=== PATIENT | male | born 1985 | race Caucasian/White ===

== ENCOUNTER 2019-03-07 17:41 | Inpatient (IN) | payer BC ==
[2019-03-07 23:09] VITALS: BMI 24.4
--- NOTE | 2019-03-08 00:07 | HP ---
COWS - Scale Resting Pulse: 0= TX 80 or Below Sweatin= Beads of Sweat on Face Restless Observation: 1= Difficult to Sit Still Pupil Size: 1= Pupils >than Normal (Pupils = 5 mm) Bone or Joint Aches: 1= Mild Discomfort Runny Nose/ Eye Tearin= Runny Nose/Eyes GI Upset > 30mins: 2= Nausea/Diarrhea Tremor Observation: 4= Gross Tremor/Twitching Yawning Observation: 1= 1-2x During Session Anxiety or Irritability: 2=Irritable/Anxious Goose Flesh Skin: 0=Smooth Skin COWS Score: 17 CIWA Score - Admission Criteria [facility] Guidelines: Admission for Medically Managed Detox: Requires at least one of the followin. CIWA greater than 12 2. Seizures within the past 24 hours 3. Delirium tremens within the past 24 hours 4. Hallucinations within the past 24 hours 5. Acute intervention needed for co occurring medical disorder 6. Acute intervention needed for co occurring psychiatric disorder 7. Severe withdrawal that cannot be handled at a lower level of care (continued vomiting, continued diarrhea, abnormal vital signs) requiring intravenous medication and/or fluids 8. Admission ROS [facility] Chief Complaint: Here for alcohol and heroin withdrawal. Allergies/Adverse Reactions: Allergies Allergy/AdvReac Type Severity Reaction Status Date / Time No Known Allergies Allergy Verified 03/07/19 20:05 History of Present Illness: Here for alcohol and heroin detox. I also need to stop the Xanax. Alcohol use began at age 10. Drinks 1 - 2 6pk 12 oz can daily Xanax - unknown quantity. Last used 3 days ago. Cocaine use since age 21. $56-60/daily IV. Heroin use began at age 15. Uses 15-20 bags. IVDU for 5 years. Shares needles and works. Is aware of health risks and is concerned may be HIV+ and have Hep C. States willing to take the HIV and Hep C test. Has a past MMT but not currently on a program. Nicotine use began at age 9. Hx blackouts. States 2 overdoses. States has a Narcan Kit at home. Hx: Asthma - last exacerbation 1 week ago - exercise induced. Cough x 3 weeks. Productive greenish phlegm. Streaks of dark blood in stool off and on. Burning w/ urination x 1 week. Chronic LBP MHHx: Insomnia; anti-social personality; Denies thoughts of harming self or others. Not seeing a MH Provider Patient Name: Sunil Linton Date: 1985 Address: [place] [address] Sex: Male Rx Written Rx Dispensed Drug Quantity Days Supply Prescriber Name 01/24/2019 02/04/2019 buprenorphine-naloxone 8-2 mg sl tablet 21 7 Mariana Segovia L 01/03/2019 01/03/2019 suboxone 8 mg-2 mg sl film 14 7 Mariana Segovia L 12/10/2018 12/17/2018 suboxone 8 mg-2 mg sl film 14 7 Mariana Segovia L Patient Name: Sunil Linton Date: 1985 Address: [address] [place] [address] Sex: Male Rx Written Rx Dispensed Drug Quantity Days Supply Prescriber Name 12/14/2017 05/10/2018 zolpidem tartrate 10 mg tablet 30 30 Nuzhat Garcia ([facility]) 03/08/2018 03/11/2018 suboxone 4 mg-1 mg sl film 90 30 Arpit Alexander MD Exam Limitations: No Limitations - Ebola screening Have you traveled outside of the country in the last 21 days: No Have you had contact with anyone from an Ebola affected area: No Have you been sick,other than usual withdrawal symptoms: No (No recent exposure to measles.) Do you have a fever: No - Review of Systems Constitutional: Chills, Diaphoresis, Unexplained wgt Loss EENT: reports: Nose Congestion Respiratory: reports: No Symptoms reported Cardiac: reports: No Symptoms Reported GI: reports: Diarrhea (Watery, dark blackish/brown), Nausea, Indigestion (Heart burn - OTC pecid AC) : reports: Burning Musculoskeletal: reports: Back Pain (Hx chronic continuous sharp back pain "6". Improves a little w/ rest.) Integumentary: reports: Pruritus (Itching skin w/ skin abrasions) Neuro: reports: Headache Endocrine: reports: Increased Thirst Hematology: reports: No Symptoms Reported Psychiatric: reports: Judgement Intact, Mood/Affect Appropiate, Agitated, Anxious Patient History - PPD History Previous Implant?: No Documented Results: Negative w/o proof Implanted On Prior [facility] Admission?: No PPD to be Administered?: Yes - Smoking Cessation Smoking history: Current every day smoker Have you smoked in the past 12 months: Yes Aproximately how many cigarettes per day: 30 Hx Chewing Tobacco Use: No Initiated information on smoking cessation: Yes 'Breaking Loose' booklet given: 03/08/19 - Substance & Tx. History Hx Alcohol Use: Yes Hx Substance Use: Yes Substance Use Type: Alcohol, Cocaine, Heroin, Prescribed (Xanax) Hx Substance Use Treatment: Yes (detox, rehab) - Substances abused Heroin Substance route: Injection Frequency: Daily Amount used: 6 bundles Age of first use: 15 Date of last use: 03/07/19 Alcohol Substance route: Oral Frequency: Daily Admission Physical Exam BHS - Vital Signs Vital Signs: Vital Signs - 24 hr 03/07/19 23:04 Temperature 97.8 F Pulse Rate 62 Respiratory 18 Rate Blood Pressure 132/76 - Physical General Appearance: Yes: Moderate Distress, Tremorous, Irritable, Sweating, Anxious HEENTM: Yes: EOMI, Normocephalic, Normal Voice, MARTIN (Pupils = 5 mm) Respiratory: Yes: No Respiratory Distress, Wheezing (Bilateral insp wheeze) Neck: Yes: No masses,lesions,Nodules, Supple Breast: Yes: Breast Exam Deferred Cardiology: Yes: Regular Rhythm, Regular Rate, S1, S2 Abdominal: Yes: Flat, Soft, Increased Bowel Sounds, Tenderness (mid-epigastric tenderness upon palpation. No rebound. No guarding.) Genitourinary: Yes: Within Normal Limits Back: Yes: Normal Inspection Musculoskeletal: Yes: full range of Motion, Gait Steady Extremities: Yes: Normal Capillary Refill, Normal Inspection, Normal Range of Motion Neurological: Yes: paralegal internship II-XII NML intact, Fully Oriented, Motor Strength 5/5 Integumentary: Yes: Normal Color, Warm, Track Cox (Newer track cox (R) antecubital area. No increased warmth. No induration.), Other (Scattered scratches on body. (L) lower abd w/ deep healing scratch approc 4 cm x .5 cm w/ slight surrounding erythema.) Lymphatic: Yes: Within Normal Limits - Diagnostic (1) Alcohol dependence with uncomplicated withdrawal Current Visit: Yes Status: Acute (2) Opioid dependence with withdrawal Current Visit: Yes Status: Acute (3) Nicotine dependence, uncomplicated Current Visit: Yes Status: Chronic Qualifiers: Nicotine product type: cigarettes Qualified Code(s): F17.210 - Nicotine dependence, cigarettes, uncomplicated (4) Scratch chanelle Current Visit: Yes Status: Chronic (5) Cocaine abuse, uncomplicated Current Visit: Yes Status: Chronic (6) Asthma Current Visit: Yes Status: Acute Qualifiers: Asthma severity: mild Asthma persistence: intermittent Asthma complication type: uncomplicated Qualified Code(s): J45.20 - Mild intermittent asthma, uncomplicated (7) Chronic back pain greater than 3 months duration Current Visit: Yes Status: Chronic Cleared for Admission S - Detox or Rehab [facility] Level of Care: Medically Managed Detox Regimen/Protocol: Methadone/Librium Claeared for Rehab Admission: No Breathalyzer - Breathalyzer Breathalyzer: 0 Urine Drug Screen - Test Device Lot number: [id number] Expiration date: 10/11/20 - Control Is test valid?: Yes - Results Drug screen NEGATIVE: No Urine drug screen results: CALVIN-Cocaine, FEN-Fentanyl, MOP-Opiates Inpatient Rehab Admission - Rehab Decision to Admit Inpatient rehab admission?: No
[2019-03-08] MEDS ORDERED: MAGNESIUM CITRATE 300 ML BOTTLE PO PRN (00:55)
[2019-03-08] MEDS ORDERED: BISMUTH SUBSALICYLATE 524 MG/30 ML UD PO PRN (00:55)
[2019-03-08] MEDS ORDERED: chlordiazePOXIDE HCL 10 MG CAPSULE PO PRN (00:55)
[2019-03-08] MEDS ORDERED: cloNIDine HCL 0.1 MG TABLET PO PRN ×2 (00:55→01:07)
[2019-03-08] MEDS ORDERED: MAGNESIUM HYDROX 2400MG/30ML ORAL SUSPENSION 30 ML CUP PO PRN (00:55)
[2019-03-08] MEDS ORDERED: ACETAMINOPHEN 325 MG TABLET (FP) PO PRN ×2 (00:55)
[2019-03-08] MEDS ORDERED: MENTHOL/PHENOL 1 EACH UD MM PRN (00:55)
[2019-03-08] MEDS ORDERED: IBUPROFEN 400 MG TABLET (FP) PO PRN (00:55)
[2019-03-08] MEDS ORDERED: ONDANSETRON *ODT* 4 MG TABLET SL PRN (00:55)
[2019-03-08] MEDS ORDERED: METHOCARBAMOL 500 MG TABLET PO PRN (00:55)
[2019-03-08] MEDS ORDERED: MELATONIN 5 MG TABLETS PO PRN (00:55)
[2019-03-08] MEDS ORDERED: MAG HYDROX/AL HYDROX/SIMETH 30 ML UNIT-DOSE CUP PO PRN (00:55)
[2019-03-08] MEDS ORDERED: NICOTINE POLACRILEX 4 MG GUM BUC PRN (00:58)
[2019-03-08] MEDS ORDERED: chlordiazePOXIDE HCL 25 MG CAPSULE PO ONE (01:01)
[2019-03-08] MEDS ORDERED: METHADONE HCL 10 MG TABLET (FOR DETOX USE ONLY) PO ONE ×3 (01:15→23:00)
[2019-03-08] MEDS ORDERED: ALBUTEROL SO4 0.083% IH SOL 2.5 MG/3 ML VIAL.NEB. NEB ONE (01:20)
[2019-03-08] MEDS ORDERED: ALBUTEROL SO4 0.083% IH SOL 2.5 MG/3 ML VIAL.NEB. NEB PRN (01:21)
[2019-03-08] MEDS: chlordiazePOXIDE HCL 25 MG CAPSULE PO SCH ×2 (07:32→14:04)
[2019-03-08] MEDS: TRIMETHOBENZAMIDE HCL 200MG/2ML INJ IM PRN ×2 (09:34→22:46)
[2019-03-08 10:33] LABS: HEMATOCRIT 41.2 % (35.4-49); HEMOGLOBIN 13.6 GM/dL (11.7-16.9); MCH 28.9 pg (25.7-33.7); MCHC 32.9 g/dl (32.0-35.9); MEAN CELL VOLUME 87.9 fl (80-96); MEAN PLT VOLUME 8.3 fl (7.5-11.1); PLATELET COUNT 242 K/MM3 (134-434); RBC 4.69 M/mm3 (4.00-5.60); RDW 15.9 % (11.9-15.9); WHITE BLOOD COUNT 10.2 K/mm3 (4.0-10.0)
[2019-03-08] MEDS ORDERED: METHADONE DETOX 10 MG/1 ML [20ML VIAL] IM ONE (11:03)
[2019-03-08 11:07] LABS: ALBUMIN 3.5 g/dl (3.4-5.0); ALK PHOS 107 U/L (45-117); ANION GAP 4 MMOL/L (8-16); BILIRUBIN,TOTAL 0.5 mg/dL (0.2-1); BLOOD UREA NITROGEN 8 mg/dL (7-18); CALCIUM 9.3 mg/dL (8.5-10.1); CHLORIDE 106 mmol/L (98-107); CO2 30 mmol/L (21-32); CREATININE 0.7 mg/dL (0.55-1.3); GLUCOSE,RANDOM 107 mg/dL (74-106); POTASSIUM 4.9 mmol/L (3.5-5.1); SGOT/AST 150 U/L (15-37); SGPT/ALT 303 U/L (13-61); SODIUM 141 mmol/L (136-145); TOT PROT 7.1 g/dl (6.4-8.2)
[2019-03-08] MEDS: PANTOPRAZOLE 20 MG TABLET (FP) PO SCH (11:58)
[2019-03-08] MEDS: PRENATAL VITAMINS W/ FOLIC ACID TABLET (FP) PO SCH (11:59)
[2019-03-08] MEDS: NICOTINE 21 MG/24 HOURS TOPICAL PATCH TD SCH (11:59)
[2019-03-08] MEDS: BACITRACIN 15 GM TUBE TOPICAL OINTMENT TP SCH ×2 (11:59→22:45)
[2019-03-08] MEDS: SENNOSIDES/DOCUSATE COMBO (SENNA PLUS) TABLET (UD) PO SCH ×2 (12:05→22:45)
--- NOTE | 2019-03-08 14:18 | PN ---
S CIWA - CIWA Score Nausea/Vomitin Muscle Tremors: 2 Anxiety: 4-Mod. Anxious/Guarded Agitation: 2 Paroxysmal Sweats: 2 Orientation: 0-Oriented Tacttile Disturbances: 1-Very Mild Itch/Numbness Auditory Disturbances: 0-None Visual Disturbances: 2-Mild Sensitivity Headache: 0-None Present CIWA-Ar Total Score: 19 BHS COWS - Scale Resting Pulse: 0= DC 80 or Below Sweatin= Chills/Flushing Restless Observation: 0= Sits Still Pupil Size: 0= Normal to Room Light Bone or Joint Aches: 2= Severe Diffuse Aches Runny Nose/ Eye Tearin= None GI Upset > 30mins: 5=Frequent Vomit/Diarrhea Tremor Observation of Outstretched Hands: 2= Slight Tremor Visible Yawning Observation: 1= 1-2x During Session Anxiety or Irritability: 4=Extreme Anxiety Goose Flesh Skin: 0=Smooth Skin COWS Score: 15 BHS Progress Note (SOAP) Subjective: Vomiting (Frequent), Body Aches, Anxious, Sweating, Tremors. Objective: PATIENT A & O X 3, OBSERVED AMBULATING ON UNIT UNASSISTED. IN NO ACUTE DISTRESS. 03/08/19 14:13 Vital Signs Temperature 96.9 F L 03/08/19 10:08 Pulse Rate 69 03/08/19 10:08 Respiratory Rate 20 03/08/19 10:08 Blood Pressure 136/88 03/08/19 10:08 O2 Sat by Pulse Oximetry (%) Laboratory Tests 03/08/19 03/08/19 03/08/19 05:30 05:30 05:30 WBC 10.2 H RBC 4.69 Hgb 13.6 Hct 41.2 MCV 87.9 MCH 28.9 MCHC 32.9 RDW 15.9 Plt Count 242 MPV 8.3 Sodium 141 Potassium 4.9 Chloride 106 Carbon Dioxide 30 Anion Gap 4 L BUN 8 Creatinine 0.7 Creat Clearance w eGFR 129.88 Random Glucose 107 H Calcium 9.3 Total Bilirubin 0.5 AST 150 H ALT 303 H Alkaline Phosphatase 107 Total Protein 7.1 Albumin 3.5 RPR Titer Nonreactive HIV 1&2 Antibody Screen HIV P24 Antigen 03/08/19 05:30 WBC RBC Hgb Hct MCV MCH MCHC RDW Plt Count MPV Sodium Potassium Chloride Carbon Dioxide Anion Gap BUN Creatinine Creat Clearance w eGFR Random Glucose Calcium Total Bilirubin AST ALT Alkaline Phosphatase Total Protein Albumin RPR Titer HIV 1&2 Antibody Screen Negative HIV P24 Antigen Negative LABS NOTED. Assessment: 03/08/19 14:19 WITHDRAWAL SYMPTOMS. ELEVATED LIVER ENZYMES (AST, ALT). Plan: CONTINUE DETOX. PRN TIGAN IM FOR NAUSEA / VOMITING. PRN ROBAXIN FOR BODY ACHES / MUSCLE SPASMS. COLACE, SENNA PO BID FOR CONSTIPATION (PATIENT REPORTS HISTORY OF OPIOID- INDUCED CONSTIPATION). DUE TO ELEVATED LIVER ENZYME LEVELS (AST, ALT) NOTED ON DETOX ADMISSION LABS, PATIENT TO BE CHANGED FROM LIBRIUM DETOX PROTOCOL TO ATIVAN DETOX PROTOCOL FOR DETOX FROM ALCOHOL.
[2019-03-08] MEDS ORDERED: LORazepam 1 MG TABLET PO PRN (14:28)
--- NOTE | 2019-03-08 14:28 | PN ---
S Progress Note Note: Patient Reports that his daily Alcohol consumption consists of an average of 2 beers (16 oz.) per day. Agustin Hankins [employer]
--- NOTE | 2019-03-08 15:18 | EKG ---
Test Reason : Blood Pressure : / mmHG Vent. Rate : 056 BPM Atrial Rate : 056 BPM P-R Int : 144 ms QRS Dur : 084 ms QT Int : 418 ms P-R-T Axes : 066 001 059 degrees QTc Int : 403 ms SINUS BRADYCARDIA OTHERWISE NORMAL ECG NO PREVIOUS ECGS AVAILABLE Confirmed by RASHEED SHORT MD ([id number]) on 03/08/2019 3:18:40 PM Referred By: JENNIFER CORNEJO Confirmed By:RASHEED SHORT MD
[2019-03-08] MEDS: LORazepam 1 MG TABLET PO SCH ×2 (17:32→22:45)
[2019-03-08] MEDS ORDERED: THIAMINE HCL 100 MG TABLET (FP) PO SCH (22:00)
[2019-03-09] MEDS ORDERED: chlordiazePOXIDE 5 MG CAPSULE PO SCH (05:00)
[2019-03-09] MEDS: LORazepam 1 MG TABLET PO SCH (05:54)
[2019-03-09] MEDS: BACITRACIN 15 GM TUBE TOPICAL OINTMENT TP SCH (09:05)
[2019-03-09] MEDS: NICOTINE 21 MG/24 HOURS TOPICAL PATCH TD SCH (09:06)
[2019-03-09] MEDS: PRENATAL VITAMINS W/ FOLIC ACID TABLET (FP) PO SCH (09:07)
[2019-03-09] MEDS: PANTOPRAZOLE 20 MG TABLET (FP) PO SCH (09:07)
[2019-03-09] MEDS: SENNOSIDES/DOCUSATE COMBO (SENNA PLUS) TABLET (UD) PO SCH (09:07)
[2019-03-09 09:25] VITALS: BP 115/75; PULSE 66; TEMP 97
[2019-03-09] MEDS ORDERED: METHADONE HCL 10 MG TABLET (FOR DETOX USE ONLY) PO ONE ×2 (10:00)
[2019-03-09] MEDS ORDERED: LORazepam 0.5 MG TABLET PO SCH (11:00)
--- NOTE | 2019-03-09 11:25 | DS ---
[facility] Detox Discharge Summary Admission Date: 03/08/19 Discharge Date: 03/09/19 - History Present History: Opioid Dependence Additional Comments: 33 years old male admitted on 03/08/19 for opiate withdrawal stabilization report that his father today wants to leave the detox to go the patient stated that he is in the process of suboxone 8-2 mg tid patient agrees to return to suboxone program after the patient is alert no acute distress denies suicidal ideation Pertinent Past History: bring in medication list and lab report to aftercare appointment - Physical Exam Results Vital Signs: Vital Signs Temperature 97.0 F L 03/09/19 09:24 Pulse Rate 66 03/09/19 09:24 Respiratory Rate 18 03/09/19 09:24 Blood Pressure 115/75 03/09/19 09:24 O2 Sat by Pulse Oximetry (%) Pertinent Admission Physical Exam Findings: opiate withdrawal sx Laboratory Last Values WBC 10.2 K/mm3 (4.0-10.0) H 03/08/19 05:30 RBC 4.69 M/mm3 (4.00-5.60) 03/08/19 05:30 Hgb 13.6 GM/dL (11.7-16.9) 03/08/19 05:30 Hct 41.2 % (35.4-49) 03/08/19 05:30 MCV 87.9 fl (80-96) 03/08/19 05:30 MCH 28.9 pg (25.7-33.7) 03/08/19 05:30 MCHC 32.9 g/dl (32.0-35.9) 03/08/19 05:30 RDW 15.9 % (11.9-15.9) 03/08/19 05:30 Plt Count 242 K/MM3 (134-434) 03/08/19 05:30 MPV 8.3 fl (7.5-11.1) 03/08/19 05:30 Sodium 141 mmol/L (136-145) 03/08/19 05:30 Potassium 4.9 mmol/L (3.5-5.1) 03/08/19 05:30 Chloride 106 mmol/L (98-107) 03/08/19 05:30 Carbon Dioxide 30 mmol/L (21-32) 03/08/19 05:30 Anion Gap 4 MMOL/L (8-16) L 03/08/19 05:30 BUN 8 mg/dL (7-18) 03/08/19 05:30 Creatinine 0.7 mg/dL (0.55-1.3) 03/08/19 05:30 Creat Clearance w eGFR 129.88 (>60) 03/08/19 05:30 Random Glucose 107 mg/dL (74-106) H 03/08/19 05:30 Calcium 9.3 mg/dL (8.5-10.1) 03/08/19 05:30 Total Bilirubin 0.5 mg/dL (0.2-1) 03/08/19 05:30 AST 150 U/L (15-37) H 03/08/19 05:30 ALT 303 U/L (13-61) H 03/08/19 05:30 Alkaline Phosphatase 107 U/L (45-117) 03/08/19 05:30 Total Protein 7.1 g/dl (6.4-8.2) 03/08/19 05:30 Albumin 3.5 g/dl (3.4-5.0) 03/08/19 05:30 RPR Titer Nonreactive (NONREACTIVE) 03/08/19 05:30 HIV 1&2 Antibody Screen Negative 03/08/19 05:30 HIV P24 Antigen Negative 03/08/19 05:30 lab noted encourage the patient to return to suboxone program for liver enzyme elevation - Treatment Hospital Course: Detox Protocol Followed, Detoxed Safely, Responded well, Discharged Condition Good, Rehab Referral Accepted Patient has Accepted a Rehab Referral to: suboxone program - Medication Discharge Medications: Ambulatory Orders NK [No Known Home Medication] 03/07/19 - Diagnosis (1) Asthma Status: Chronic Qualifiers: Asthma severity: mild Asthma persistence: intermittent Asthma complication type: with status asthmaticus Qualified Code(s): J45.22 - Mild intermittent asthma with status asthmaticus (2) Opioid dependence with withdrawal Status: Acute (3) Nicotine dependence, uncomplicated Status: Acute Qualifiers: Nicotine product type: cigarettes Qualified Code(s): F17.210 - Nicotine dependence, cigarettes, uncomplicated - AMA Did Patient Leave Against Medical Advice: Yes
[2019-03-09] MEDS ORDERED: LORazepam 0.5 MG TABLET PO PRN (14:30)
[2019-03-10] MEDS ORDERED: chlordiazePOXIDE HCL 10 MG CAPSULE PO PRN (05:00)
[2019-03-10] MEDS ORDERED: chlordiazePOXIDE HCL 10 MG CAPSULE PO SCH (05:00)
[2019-03-10] MEDS ORDERED: METHADONE HCL 10 MG TABLET (FOR DETOX USE ONLY) PO ONE ×2 (10:00)
[2019-03-11] MEDS ORDERED: METHADONE HCL 10 MG TABLET (FOR DETOX USE ONLY) PO ONE ×2 (10:00)
[2019-03-12] MEDS ORDERED: METHADONE HCL 5 MG TABLET (FOR DETOX USE ONLY) PO ONE ×2 (06:00)
== END 2019-03-09 09:29 | disposition left against medical advice (07) | DRG 770 ==
LOC: YASAS 17:41 → Y3N 03-08 01:00
PROVIDERS: ADMIT Surgery; ATTEND Surgery
PROC: HZ2ZZZZ Detoxification Services for Substance Abuse Treatment (ICD-10-PCS; principal; 2019-03-08)
DX: F11.23 Opioid dependence with withdrawal (principal); F10.230 Alcohol dependence with withdrawal, uncomplicated; F14.10 Cocaine abuse, uncomplicated; F17.210 Nicotine dependence, cigarettes, uncomplicated; J45.22 Mild intermittent asthma with status asthmaticus; M54.5 Low back pain; G89.29 Other chronic pain; R94.5 Abnormal results of liver function studies
CPT/HCPCS: 36415; 80053; 85027; 86593; 87389; 93005; 93010; J0735